=== PATIENT | male | born 1930 | race Caucasian/White ===

== ENCOUNTER → 2016-12-14 | Outpatient (CLI) | payer MEDICARE, BC | LOC: LAB 11:45 | DX: I25.10 Atherosclerotic heart disease of native coronary artery without angina pectoris (principal) | CPT/HCPCS: 93005 ==

== ENCOUNTER → 2016-12-18 | Outpatient (CLI) | payer MEDICARE, BC | LOC: RAD 07:22 | DX: K59.00 Constipation, unspecified (principal); K57.30 Diverticulosis of large intestine without perforation or abscess without bleeding; Z90.89 Acquired absence of other organs | CPT/HCPCS: 74270 ==

== ENCOUNTER → 2017-01-25 | Outpatient (CLI) | payer MEDICARE, BC | LOC: KOH-I 10:39 | DX: M54.5 Low back pain (principal); M25.512 Pain in left shoulder; M25.552 Pain in left hip; M47.816 Spondylosis without myelopathy or radiculopathy, lumbar region | CPT/HCPCS: 72110; 73030; 73502 ==

== ENCOUNTER 2020-11-28 16:34 | Observation (INO) | payer MEDICARE, BC ==
[~2020-11-28] VITALS: Ht 180.3 cm; Wt 86.2 kg
[2020-11-28 18:39] LABS: HEMOGLOBIN 11.2 gm/dl (14.0-17.5); RED BLOOD COUNT 3.23 M/UL (4.20-5.50); WHITE BLOOD COUNT 7.1 K/UL (4.5-11.0)
[2020-11-28 18:41] LABS: BUN/CREATININE RATIO 23 (0-10)
[2020-11-28] MEDS ORDERED: ELIQUIS 5 MG TAB5 MG PO (20:54)
[2020-11-28] MEDS ORDERED: PRAVACHOL40 MG PO (20:55)
[2020-11-28] MEDS ORDERED: PRINIVIL20 MG PO (20:56)
[2020-11-28] MEDS ORDERED: GLUCOPHAGE500 MG PO (20:56)
[2020-11-28 20:57] LABS: HEMOGLOBIN 9.4 gm/dl (14.0-17.5)
[2020-11-28] MEDS ORDERED: HYDROCHLOROTHIA25 MG PO (20:57)
[2020-11-28] MEDS ORDERED: LOPRESSOR 25 MG25 MG PO (20:57)
[2020-11-28] MEDS ORDERED: ASPIRIN EC81 MG PO (20:57)
[2020-11-28 20:58] LABS: RED BLOOD COUNT 2.73 M/UL (4.20-5.50); WHITE BLOOD COUNT 13.7 K/UL (4.5-11.0)
[2020-11-28] MEDS ORDERED: TYLENOL PM EX-1 EACH PO (20:58)
[2020-11-29 06:39] LABS: HEMOGLOBIN 8.6 gm/dl (14.0-17.5); RED BLOOD COUNT 2.54 M/UL (4.20-5.50)
[2020-11-29 07:16] LABS: BUN/CREATININE RATIO 25 (0-10)
--- NOTE | 2020-11-29 09:56 | NUR ---
PT DEMANDS TO USE BEDSIDE COMMADE, AND REFUSED TO USE BED CARLOS AT THIS TIME. PT IS VERY ANGRY, PT HAS SWOLLEN LEGS, AND COULD NOT BEAR WEIGHT. PT IS AWARE OF KNOWN RISK OF EGETTING UP OUT OF THE BED AND INCRESSING RISK FOR FURTHER INJURIES, IF ANY ARE UNKNOWN AT THIS TIME, PT IS AWARE OF THE RISK OF FALLING, ADN STILL DEMANDS TO GET TO GET UP
--- NOTE | 2020-11-29 14:41 | NUR ---
pt refusing to wear air cast boot, sending air cast boot home with patient and son, pt and family educated
== END 2020-11-29 15:08 | disposition home or self-care (01) ==
LOC: ER1 16:34 → MED SURG 4 20:05 → CDU 20:05 → MED SURG 4 22:57
PROVIDERS: Internal Medicine; Physician Assistant; ADMIT Internal Medicine
DX: S99.821A Other specified injuries of right foot, initial encounter (principal); S89.91XA Unspecified injury of right lower leg, initial encounter; I25.10 Atherosclerotic heart disease of native coronary artery without angina pectoris; I48.91 Unspecified atrial fibrillation; I11.0 Hypertensive heart disease with heart failure; I50.9 Heart failure, unspecified; E11.9 Type 2 diabetes mellitus without complications; Z95.5 Presence of coronary angioplasty implant and graft; Z98.890 Other specified postprocedural states; Z20.822 Contact with and (suspected) exposure to COVID-19; Z88.0 Allergy status to penicillin; Z79.01 Long term (current) use of anticoagulants; Z79.4 Long term (current) use of insulin; Z79.82 Long term (current) use of aspirin; Z79.899 Other long term (current) drug therapy; V48.2XXA Person on outside of car injured in noncollision transport accident in nontraffic accident, initial encounter
CPT/HCPCS: 36415; 70450; 71045; 71260; 72125; 73502; 73562; 73590; 73630; 80048; 80053; 82550; 82553; 82962; 83874; 84484; 85025; 86850; 86900; 86901; 90471; 90715; 93005; 96374; 96376; 99284; G0378; J2060; J2270; Q9967; U0002

== ENCOUNTER 2020-12-07 09:51 | Inpatient (IN) | payer MEDICARE, BC ==
[~2020-12-07] VITALS: Ht 180.3 cm; Wt 86.2 kg
[~2020-12-07 09:51] MED LIST: ASPIRIN EC81 MG PO; ELIQUIS 5 MG TAB5 MG PO; GLUCOPHAGE500 MG PO; HYDROCHLOROTHIA25 MG PO; LOPRESSOR 25 MG25 MG PO; PRAVACHOL40 MG PO; PRINIVIL20 MG PO; TYLENOL PM EX-1 EACH PO
[2020-12-07 12:25] LABS: HEMOGLOBIN 8.2 gm/dl (14.0-17.5); RED BLOOD COUNT 2.4 M/UL (4.20-5.50); WHITE BLOOD COUNT 7.8 K/UL (4.5-11.0)
[2020-12-07 12:47] LABS: BUN/CREATININE RATIO 13 (0-10)
[2020-12-08 06:27] LABS: HEMOGLOBIN 7.4 gm/dl (14.0-17.5); RED BLOOD COUNT 2.11 M/UL (4.20-5.50); WHITE BLOOD COUNT 6.4 K/UL (4.5-11.0)
[2020-12-08 07:06] LABS: BUN/CREATININE RATIO 16 (0-10)
[2020-12-08 13:36] LABS: HEMOGLOBIN 8.1 gm/dl (14.0-17.5)
[2020-12-08 23:52] LABS: BUN/CREATININE RATIO 17 (0-10)
[2020-12-09 04:50] LABS: HEMOGLOBIN 7.7 gm/dl (14.0-17.5); RED BLOOD COUNT 2.17 M/UL (4.20-5.50); WHITE BLOOD COUNT 6.6 K/UL (4.5-11.0)
[2020-12-09 05:15] LABS: BUN/CREATININE RATIO 18 (0-10)
[2020-12-10 03:34] LABS: BUN/CREATININE RATIO 20 (0-10)
[2020-12-10 11:45] LABS: HEMOGLOBIN 7.6 gm/dl (14.0-17.5); RED BLOOD COUNT 2.16 M/UL (4.20-5.50); WHITE BLOOD COUNT 6.1 K/UL (4.5-11.0)
[2020-12-11 06:25] LABS: HEMOGLOBIN 7.6 gm/dl (14.0-17.5); RED BLOOD COUNT 2.22 M/UL (4.20-5.50); WHITE BLOOD COUNT 7.4 K/UL (4.5-11.0)
[2020-12-11 06:39] LABS: BUN/CREATININE RATIO 24 (0-10)
[2020-12-11] MEDS ORDERED: KEFLEX CAP 250250 MG PO (10:58)
== END 2020-12-11 13:34 | DRG 603 ==
LOC: ER1 09:51 → CDU 13:32 → MED SURG 4 13:32
PROVIDERS: Internal Medicine; Physician Assistant; ADMIT Family Medicine
DX: L03.115 Cellulitis of right lower limb (principal); I50.22 Chronic systolic (congestive) heart failure; D62 Acute posthemorrhagic anemia; S90.31XA Contusion of right foot, initial encounter; M79.89 Other specified soft tissue disorders; N20.0 Calculus of kidney; E11.9 Type 2 diabetes mellitus without complications; I25.10 Atherosclerotic heart disease of native coronary artery without angina pectoris; E78.5 Hyperlipidemia, unspecified; D64.9 Anemia, unspecified; I11.0 Hypertensive heart disease with heart failure; S70.01XA Contusion of right hip, initial encounter; I48.0 Paroxysmal atrial fibrillation; F03.90 Unspecified dementia, unspecified severity, without behavioral disturbance, psychotic disturbance, mood disturbance, and anxiety; H91.90 Unspecified hearing loss, unspecified ear; Z96.653 Presence of artificial knee joint, bilateral; Z96.649 Presence of unspecified artificial hip joint; Z98.890 Other specified postprocedural states; Z90.49 Acquired absence of other specified parts of digestive tract; Z20.822 Contact with and (suspected) exposure to COVID-19; Z80.9 Family history of malignant neoplasm, unspecified; Z88.0 Allergy status to penicillin; Z79.01 Long term (current) use of anticoagulants; Z79.84 Long term (current) use of oral hypoglycemic drugs; Z95.5 Presence of coronary angioplasty implant and graft; V59.88XA Occupant (driver) (passenger) of pick-up truck or van injured in other specified transport accidents, initial encounter
CPT/HCPCS: 36415; 73630; 73700; 80048; 80053; 80202; 82550; 82553; 82607; 82746; 82962; 83605; 83735; 85014; 85018; 85025; 86140; 86850; 86900; 86901; 87040; 87635; 96365; 96366; 96372; 96375; 97116; 97161; 99285; J0692; J0696; J3370; J7030; J7070; Q9967

== ENCOUNTER → 2021-03-07 | Outpatient (CLI) | payer MEDICARE, BC ==
[~2021-03-07] MED LIST changes: +KEFLEX CAP 250250 MG PO
== END ==
LOC: EXRD 08:55
DX: J20.9 Acute bronchitis, unspecified (principal)
CPT/HCPCS: 71046

== ENCOUNTER → 2021-06-17 | Outpatient (CLI) | payer MEDICARE, BC | LOC: KOH-I 11:50 | DX: R05 Cough (principal) | CPT/HCPCS: 71046 ==

== ENCOUNTER → 2021-07-23 | Outpatient (CLI) | payer OTHER | LOC: KOH-I 10:11 | DX: R41.81 Age-related cognitive decline (principal) | CPT/HCPCS: 70450; 93880 ==

== ENCOUNTER → 2021-09-22 | Outpatient (CLI) | payer MEDICARE | LOC: KOH-I 12:48 | DX: J40 Bronchitis, not specified as acute or chronic (principal) | CPT/HCPCS: 71046 ==